=== PATIENT | male | born 1995 | race Caucasian/White ===

== ENCOUNTER 2018-12-24 22:03 | Emergency (ER) | payer OTHER ==
[~2018-12-24] VITALS: Ht 167.6 cm; Wt 72.6 kg
[2018-12-24 22:05] VITALS: BP 144/88
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
--- NOTE | 2018-12-24 22:05 | NUR ---
PT TAKEN TO BED 4
[2018-12-24] MEDS ORDERED: NACL 0.9% 2,000 ML IV ONE (22:10)
--- NOTE | 2018-12-24 22:40 | NUR ---
PT STATED "IT FEELS BETTER. BUT IT STILL BURTON SOME." DR. VIZCAINO MADE AWARE.
--- NOTE | 2018-12-24 22:41 | NUR ---
Dr. Botello examining patient.
--- NOTE | 2018-12-24 22:50 | NUR ---
PT TOOK OUT SUSANNA GALICIA. PER PT "I DONT WANT IT." DR. VIZCAINO MADE AWARE.
--- NOTE | 2018-12-24 22:56 | NUR ---
VISUAL ACUITY COMPLETE, L EYE 20/30 AND R EYE 20/13. DR. VIZCAINO MADE AWARE.
[2018-12-24 23:30] VITALS: BP 131/78
--- NOTE | 2018-12-24 23:30 | NUR ---
Patient discharged with v/s stable. Written and verbal after care instructions given and explained. Patient alert, oriented and verbalized understanding of instructions. Ambulatory with steady gait. All questions addressed prior to discharge. ID band removed. Patient advised to follow up with PMD. Rx of KETOROLAC OPHTHALMIC given. Patient educated on indication of medication including possible reaction and side effects. Opportunity to ask questions provided and answered.
== END 2018-12-24 23:30 | disposition home or self-care (01) ==
LOC: MED 22:03
DX: H10.213 Acute toxic conjunctivitis, bilateral (principal); R03.0 Elevated blood-pressure reading, without diagnosis of hypertension; Z88.8 Allergy status to other drugs, medicaments and biological substances
CPT/HCPCS: 99283; J7030